=== PATIENT | male | born 2000 | race American Indian/Alaskan Native ===

== ENCOUNTER 2021-06-17 16:41 | Emergency (ER) | payer SELFPAY ==
--- NOTE | 2021-06-17 17:06 | Event Note ---
ED Screening Note Date of service: 06/17/21 Time: 16:59 ED Screening Note: Patient here with complaints of attempted suicide via taking a handful of Tylenol 1 hour prior to arrival Reports some dizziness [place] poison control contacted; Spoke with Estelle-recommends activated charcoal dose at 1 g/kg, max 100 g; also recommends repeating Tylenol level at 7 PM; if Tylenol level is greater than or equal to 150, contact poison control for further instructions on dosing for N-acetylcysteine. She recommends fluids and antiemetics as needed, and supportive care for now. This initial assessment/diagnostic orders/clinical plan/treatment(s) is/are subject to change based on patients health status, clinical progression and re- assessment by fellow clinical providers in the ED. Further treatment and workup at subsequent clinical providers discretion. Patient/guardian urged not to elope from the ED as their condition may be serious if not clinically assessed and managed. Initial orders include: Labs Mental health eval EKG
[2021-06-17] MEDS ORDERED: ONDANSETRON 4 MG ODT TAB PO ONE (17:10)
[2021-06-17] MEDS ORDERED: charcoal activated SOLUTION 25 GM/120 ML PO ONE (17:10)
--- NOTE | 2021-06-17 17:21 | Emergency Department Report ---
HPI - General Chief Complaint: Psych Time Seen by Provider: 06/17/21 17:04 - HPI HPI: MSE 2 The patient is a 20-year-old male present with a chief complaint of suicidal ideation and overdose. The patient states he has felt suicidal for several weeks and then he developed an issue with his girlfriend which worsened his stress. Patient states approximately 1.5 hours ago he took a handful of Tylenol rapid release. Patient is uncertain of the milligrams or the amount he took. Patient initially denied having any physical symptoms but now complains of feeling lightheaded for the past 40 minutes. Patient denies any other complaints. Patient denies any other attempts at harming self ED Past Medical Hx - Past Medical History Previous Medical History?: No - Surgical History Past Surgical History?: No - Family History Family history: no significant - Social History Smoking Status: Current Some Day Smoker (Black and milds) Substance Use Type: Marijuana - Medications Home Medications: Home Medications Medication Instructions Recorded Confirmed Last Taken Type No Known Home Medications [No 06/17/21 06/17/21 Unknown History Reported Home Medications] ED Review of Systems ROS: Stated complaint: TOOK MORE THAN 20 TYLENOL/RAPID RELEASE Other details as noted in HPI Constitutional: no symptoms reported Eyes: denies: eye pain ENT: denies: throat pain Respiratory: no symptoms reported Cardiovascular: denies: chest pain Endocrine: no symptoms reported Gastrointestinal: denies: abdominal pain Genitourinary: denies: dysuria Musculoskeletal: denies: back pain Neurological: other (Lightheadedness) Physical Exam - Physical Exam Vital Signs: Vital Signs 06/17/21 16:50 Temperature 98.1 F Pulse Rate 76 Respiratory 18 Rate Blood Pressure 149/94 [Right] O2 Sat by Pulse 100 Oximetry Physical Exam: GENERAL: The patient is well-developed well-nourished male sitting in chair not appearing to be in acute distress. [] HEENT: Normocephalic. Atraumatic. Extraocular motions are intact. Patient has moist mucous membranes. NECK: Supple. Trachea midline CHEST/LUNGS: Clear to auscultation. There is no respiratory distress noted. HEART/CARDIOVASCULAR: Regular. There is no tachycardia. There is no gallop rub or murmur. ABDOMEN: Abdomen is soft, nontender. Patient has normal bowel sounds. There is no abdominal distention. SKIN: There is no rash. There is no edema. There is no diaphoresis. NEURO: The patient is awake, alert, and oriented. The patient is cooperative. The patient has no focal neurologic deficits. The patient has normal speech. GCS 15 MUSCULOSKELETAL: There is no evidence of acute injury. ED Course Vital Signs 06/17/21 16:50 Temperature 98.1 F Pulse Rate 76 Respiratory 18 Rate Blood Pressure 149/94 [Right] O2 Sat by Pulse 100 Oximetry ED Medical Decision Making - Lab Data Result diagrams: 06/17/21 17:16 06/17/21 17:16 Laboratory Tests 06/17/21 06/17/21 06/17/21 17:16 17:16 17:16 WBC 5.7 RBC 4.63 Hgb 14.9 Hct 43.6 MCV 94 MCH 32 MCHC 34 RDW 14.2 Plt Count 154 Lymph % (Auto) 20.5 [place] % (Auto) 7.8 H Eos % (Auto) 1.4 Baso % (Auto) 0.4 Lymph # (Auto) 1.2 [place] # (Auto) 0.4 Eos # (Auto) 0.1 Baso # (Auto) 0.0 Seg Neutrophils % 69.9 Seg Neutrophils # 4.0 Sodium 142 Potassium 4.1 Chloride 103.3 Carbon Dioxide 26 Anion Gap 17 BUN 10 Creatinine 0.9 Estimated GFR > 60 BUN/Creatinine Ratio 11 Glucose 108 H Calcium 10.1 Total Bilirubin 1.20 AST 45 H ALT 30 Alkaline Phosphatase 43 Total Protein 7.9 Albumin 4.9 Albumin/Globulin Ratio 1.6 Urine Color Urine Turbidity Urine pH Ur Specific [place] Urine Protein Urine Glucose (UA) Urine Ketones Urine Blood Urine Nitrite Urine Bilirubin Urine Urobilinogen Ur Leukocyte Esterase Urine WBC (Auto) Urine RBC (Auto) U Epithel Cells (Auto) Urine Mucus Salicylates < 0.3 L Urine Opiates Screen Urine Methadone Screen Acetaminophen Ur Barbiturates Screen Ur Phencyclidine Scrn Ur Amphetamines Screen U Benzodiazepines Scrn Urine Cocaine Screen U Marijuana (THC) Screen Drugs of Abuse Note Plasma/Serum Alcohol 06/17/21 06/17/21 06/17/21 17:16 17:16 17:48 WBC RBC Hgb Hct MCV MCH MCHC RDW Plt Count Lymph % (Auto) [place] % (Auto) Eos % (Auto) Baso % (Auto) Lymph # (Auto) [place] # (Auto) Eos # (Auto) Baso # (Auto) Seg Neutrophils % Seg Neutrophils # Sodium Potassium Chloride Carbon Dioxide Anion Gap BUN Creatinine Estimated GFR BUN/Creatinine Ratio Glucose Calcium Total Bilirubin AST ALT Alkaline Phosphatase Total Protein Albumin Albumin/Globulin Ratio Urine Color [place] Urine Turbidity Hazy Urine pH 8.0 H Ur Specific [place] 1.030 Urine Protein 100 mg/dl Urine Glucose (UA) Neg Urine Ketones Neg Urine Blood Neg Urine Nitrite Neg Urine Bilirubin Neg Urine Urobilinogen 2.0 Ur Leukocyte Esterase Sm Urine WBC (Auto) 23.0 H Urine RBC (Auto) 3.0 U Epithel Cells (Auto) 3.0 Urine Mucus 3+ Salicylates Urine Opiates Screen Urine Methadone Screen Acetaminophen 5.0 L Ur Barbiturates Screen Ur Phencyclidine Scrn Ur Amphetamines Screen U Benzodiazepines Scrn Urine Cocaine Screen U Marijuana (THC) Screen Drugs of Abuse Note Plasma/Serum Alcohol < 0.01 06/17/21 06/18/21 06/18/21 17:48 00:32 00:32 WBC RBC Hgb Hct MCV MCH MCHC RDW Plt Count Lymph % (Auto) [place] % (Auto) Eos % (Auto) Baso % (Auto) Lymph # (Auto) [place] # (Auto) Eos # (Auto) Baso # (Auto) Seg Neutrophils % Seg Neutrophils # Sodium Potassium Chloride Carbon Dioxide Anion Gap BUN Creatinine Estimated GFR BUN/Creatinine Ratio Glucose Calcium Total Bilirubin AST ALT Alkaline Phosphatase Total Protein Albumin Albumin/Globulin Ratio Urine Color Urine Turbidity Urine pH Ur Specific [place] Urine Protein Urine Glucose (UA) Urine Ketones Urine Blood Urine Nitrite Urine Bilirubin Urine Urobilinogen Ur Leukocyte Esterase Urine WBC (Auto) Urine RBC (Auto) U Epithel Cells (Auto) Urine Mucus Salicylates < 0.3 L Urine Opiates Screen Negative Urine Methadone Screen Negative Acetaminophen 5.0 L Ur Barbiturates Screen Negative Ur Phencyclidine Scrn Negative Ur Amphetamines Screen Negative U Benzodiazepines Scrn Negative Urine Cocaine Screen Negative U Marijuana (THC) Screen Positive Drugs of Abuse Note Disclamer Plasma/Serum Alcohol - Differential Diagnosis Suicidal ideation, acetaminophen overdose Critical care attestation.: If time is entered above; I have spent that time in minutes in the direct care of this critically ill patient, excluding procedure time. ED Disposition Clinical Impression: Suicidal ideation, Acetaminophen overdose Disposition: [address] [place] [address] Is pt being admited?: No Does the pt Need Aspirin: No Condition: Stable Time of Disposition: 01:24 (Awaiting acceptance)
[2021-06-17 17:31] LABS: Basophils % (Auto) 0.4 % (0.0-1.8); Eosinophils # (Auto) 0.1 K/mm3 (0.0-0.4); Eosinophils % (Auto) 1.4 % (0.0-4.3); Hematocrit 43.6 % (35.5-45.6); Hemoglobin 14.9 gm/dl (11.8-15.2); Lymphocytes # (Auto) 1.2 K/mm3 (1.2-5.4); Lymphocytes % (Auto) 20.5 % (13.4-35.0); Mean Corpuscular HGB Conc 34 % (32-34); Mean Corpuscular Volume 94 fl (84-94); Monocytes # (Auto) 0.4 K/mm3 (0.0-0.8); Monocytes % (Auto) 7.8 % (0.0-7.3); Platelet Count 154 K/mm3 (140-440); Red Blood Count 4.63 M/mm3 (3.65-5.03); Red Cell Distribution Width 14.2 % (13.2-15.2)
[2021-06-17 17:54] LABS: Alanine Aminotransferase 30 units/L (7-56); Albumin 4.9 g/dL (3.9-5); BUN/Creatinine Ratio 11; Blood Urea Nitrogen 10 mg/dL (9-20); Calcium 10.1 mg/dL (8.4-10.2); Hemolysis Index 57
[2021-06-17 17:57] LABS: Bilirubin,Urine NEG (Negative); Blood,Urine NEG (Negative); Color,Urine Amber (Yellow); Mucus,Urine 3+ /HPF
[2021-06-17 18:03] LABS: Amphetamine Screen,Urine Negative; Benzodiazepines Screen,Urine Negative; Cocaine Screen,Urine Negative; Methadone Screen,Urine Negative; Opiate Screen,Urine Negative
[2021-06-17 18:24] LABS: Cannabinoid Screen,Urine Positive
[2021-06-18] MEDS ORDERED: levoFLOXacin 500 MG TAB PO ONE (01:23)
[2021-06-18] MEDS ORDERED: MELATONIN 5 MG TAB PO PRN (01:54)
[2021-06-18 08:11] VITALS: BP 140/79
--- NOTE | 2021-06-18 10:16 | Consultation ---
History of Present Illness - Reason for Consult Consult date: 06/18/21 Reason for consult: mental health evaluation - History of Present Psychiatric Illness Per ED Note:The patient is a 20-year-old male present with a chief complaint of suicidal ideation and overdose. The patient states he has felt suicidal for several weeks and then he developed an issue with his girlfriend which worsened his stress. Patient states approximately 1.5 hours ago he took a handful of Tylenol rapid release. Patient is uncertain of the milligrams or the amount he took. Patient initially denied having any physical symptoms but now complains of feeling lightheaded for the past 40 minutes. Patient denies any other complaints. Patient denies any other attempts at harming self. Ella Mckinney is a 20 year old male with no psychiatric history and he is naive to psychotropic medications. In my interview with the patient, he reports doing well. The patient reports taking about 5-10 pills of Tylenol, he states recent stressor such " a lot of stress and I just lost my baby (still born)." The denies feeling depressed and he is not receptive to starting psychotropic medications. He states support system such as is father,girlfriend and he is current employed. The patient is anxious to return to work stating " I feel better." He denies any current suicidal/homicidal ideation and denies hallucinations. PAST PSYCHIATRIC HISTORY Diagnoses: Denies Suicide attempts or Self-harm behavior: Denies Prior psychiatric hospitalizations:Denies Substance Abuse history: marijuana Previous psychiatric medications tried: Denied Outpatient treatment: Denied SOCIAL HISTORY Marital Status: Single Living Arrangements: Lives with girlfriend Employment Status: employed Access to guns/weapons: Denied Education: 12th grade History of Abuse: Denied Legal History: None reported REVIEW OF SYSTEMS Constitutional: Negative for weight loss ENT: Negative for stridor Respiratory: Negative for cough or hemoptysis All other systems reviewed and are negative MENTAL STATUS EXAMINATION General Appearance and Behavior: Age appropriate, dressed appropriately, calm and uncooperative Cooperation: guarded Psychomotor Behavior: psychomotor normal Mood: "ok" Affect and affective range: congruent with stated mood Thought Process: goal oriented Thought Content: Not suicidal Speech: Normal volume, Regular rate and rhythm, Intellectual Functioning: Average Suicidal Ideation: Denies Homicidal Ideation: denies Hallucinations: Denies Delusions: None elicited Impulse Control: Unimpaired Insight and Judgment: limited insight and judgment, Memory: Normal Attention: divided Orientation: Alert, oriented Assessment and Plan (1) Major depressive disorder (2) Treatment plan d/c 1013 Continue previous prescribed meds Risks, benefits and alternatives of medications discussed with the patient, questions answered and consent obtained from patient. PSYCHOTHERAPY: Supportive psychotherapy provided MEDICAL: Per primary team DELIRIUM PRECAUTIONS: Please re-orient patient frequently, keep lights on during the day, and minimize benzodiazepines and opiates as these medications could worsen patient's confusion. 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 The patient understands that he should seek immediate assistance if SI/HI return The patient is to follow up with outpatient psych in 7 to 14 days upon discharge. [facility] will provide patient with out patient psychiatry resources. Will sign off. Thank you for the consult. Please contact with any questions and/or concerns. Case staffed with Dr. Queen Medications and Allergies Allergies Allergy/AdvReac Type Severity Reaction Status Date / Time shellfish derived AdvReac Angioedema Verified 06/17/21 16:49 Home Medications Medication Instructions Recorded Confirmed Last Taken Type No Known Home Medications [No 06/17/21 06/17/21 Unknown History Reported Home Medications] Active Meds: Active Medications Melatonin (Melatonin 5 Mg Tab) 10 mg PO QHS PRN PRN Reason: Sleep Last Admin: 06/18/21 02:07 Dose: 10 mg Documented by: Mental Status Exam - Vital signs Last Vital Signs Temp 98.3 F 06/18/21 08:10 Pulse 76 06/18/21 08:10 Resp 18 06/18/21 08:10 BP 140/79 06/18/21 08:10 Pulse Ox 97 06/18/21 08:10 Results Result Diagrams: 06/17/21 17:16 06/17/21 17:16 Abnormal lab results 06/17/21 06/17/21 06/17/21 Range/Units 17:16 17:16 17:16 [place] % (Auto) 7.8 H (0.0-7.3) % Glucose 108 H (75-100) mg/dL AST 45 H (5-40) units/L Urine pH (5.0-7.0) Urine WBC (Auto) (0.0-6.0) /HPF Salicylates < 0.3 L (2.8-20.0) mg/dL Acetaminophen (10.0-30.0) ug/mL 06/17/21 06/17/21 06/18/21 Range/Units 17:16 17:48 00:32 [place] % (Auto) (0.0-7.3) % Glucose (75-100) mg/dL AST (5-40) units/L Urine pH 8.0 H (5.0-7.0) Urine WBC (Auto) 23.0 H (0.0-6.0) /HPF Salicylates < 0.3 L (2.8-20.0) mg/dL Acetaminophen 5.0 L (10.0-30.0) ug/mL 06/18/21 Range/Units 00:32 [place] % (Auto) (0.0-7.3) % Glucose (75-100) mg/dL AST (5-40) units/L Urine pH (5.0-7.0) Urine WBC (Auto) (0.0-6.0) /HPF Salicylates (2.8-20.0) mg/dL Acetaminophen 5.0 L (10.0-30.0) ug/mL All other labs normal.
--- NOTE | 2021-06-18 11:00 | Event Note ---
Date: 06/18/21 The patient was evaluated in the emergency department for symptoms described in the history of present illness. He/she was evaluated in the context of the global COVID-19 pandemic, which necessitated consideration that the patient might be at risk for infection with the virus that causes COVID-19. Institutional protocols and algorithms that pertain to the evaluation of patients at risk for COVID-19 are in a state of rapid change based on information released by regulatory bodies including the CDC and federal and state organizations. These policies and algorithms were followed during the patient's care in the emergency department. Please note that these policies, procedures and recommendations changed on a rapid basis. Patient seen and examined. No acute distress. No complaints articulated to myself or nursing team. He was deemed medically suitable for psychiatric consultation and disposition during his additional ER stay. The psychiatric team have recommended discharge as an outpatient. Laboratory studies, vital signs, ER documentation and psychiatric documentation are reviewed and appreciated. Pyuria asymptomatic, reviewed and appreciated. Outpatient follow-up with health department or primary care. Vital Signs 06/17/21 06/17/21 06/18/21 16:50 23:24 08:10 Temperature 98.1 F 98.3 F Pulse Rate 76 76 Respiratory 18 18 Rate Blood Pressure 149/94 140/79 [Right] O2 Sat by Pulse 100 97 97 Oximetry Lab Results 06/17/21 06/17/21 06/17/21 Range/Units 17:16 17:16 17:16 WBC 5.7 (4.5-11.0) K/mm3 RBC 4.63 (3.65-5.03) M/mm3 Hgb 14.9 (11.8-15.2) gm/dl Hct 43.6 (35.5-45.6) % MCV 94 (84-94) fl MCH 32 (28-32) pg MCHC 34 (32-34) % RDW 14.2 (13.2-15.2) % Plt Count 154 (140-440) K/mm3 Lymph % (Auto) 20.5 (13.4-35.0) % [place] % (Auto) 7.8 H (0.0-7.3) % Eos % (Auto) 1.4 (0.0-4.3) % Baso % (Auto) 0.4 (0.0-1.8) % Lymph # (Auto) 1.2 (1.2-5.4) K/mm3 [place] # (Auto) 0.4 (0.0-0.8) K/mm3 Eos # (Auto) 0.1 (0.0-0.4) K/mm3 Baso # (Auto) 0.0 (0.0-0.1) K/mm3 Seg Neutrophils % 69.9 (40.0-70.0) % Seg Neutrophils # 4.0 (1.8-7.7) K/mm3 Sodium 142 (137-145) mmol/L Potassium 4.1 (3.6-5.0) mmol/L Chloride 103.3 (98-107) mmol/L Carbon Dioxide 26 (22-30) mmol/L Anion Gap 17 mmol/L BUN 10 (9-20) mg/dL Creatinine 0.9 (0.8-1.3) mg/dL Estimated GFR > 60 ml/min BUN/Creatinine Ratio 11 % Glucose 108 H (75-100) mg/dL Calcium 10.1 (8.4-10.2) mg/dL Total Bilirubin 1.20 (0.1-1.2) mg/dL AST 45 H (5-40) units/L ALT 30 (7-56) units/L Alkaline Phosphatase 43 (35-129) units/L Total Protein 7.9 (6.3-8.2) g/dL Albumin 4.9 (3.9-5) g/dL Albumin/Globulin Ratio 1.6 % Urine Color (Yellow) Urine Turbidity (Clear) Urine pH (5.0-7.0) Ur Specific [place] (1.003-1.030) Urine Protein (Negative) mg/dL Urine Glucose (UA) (Negative) mg/dL Urine Ketones (Negative) mg/dL Urine Blood (Negative) Urine Nitrite (Negative) Urine Bilirubin (Negative) Urine Urobilinogen (<2.0) mg/dL Ur Leukocyte Esterase (Negative) Urine WBC (Auto) (0.0-6.0) /HPF Urine RBC (Auto) (0.0-6.0) /HPF U Epithel Cells (Auto) (0-13.0) /HPF Urine Mucus /HPF Salicylates < 0.3 L (2.8-20.0) mg/dL Urine Opiates Screen Urine Methadone Screen Acetaminophen (10.0-30.0) ug/mL Ur Barbiturates Screen Ur Phencyclidine Scrn Ur Amphetamines Screen U Benzodiazepines Scrn Urine Cocaine Screen U Marijuana (THC) Screen Drugs of Abuse Note Plasma/Serum Alcohol (0-0.07) % 06/17/21 06/17/21 06/17/21 Range/Units 17:16 17:16 17:48 WBC (4.5-11.0) K/mm3 RBC (3.65-5.03) M/mm3 Hgb (11.8-15.2) gm/dl Hct (35.5-45.6) % MCV (84-94) fl MCH (28-32) pg MCHC (32-34) % RDW (13.2-15.2) % Plt Count (140-440) K/mm3 Lymph % (Auto) (13.4-35.0) % [place] % (Auto) (0.0-7.3) % Eos % (Auto) (0.0-4.3) % Baso % (Auto) (0.0-1.8) % Lymph # (Auto) (1.2-5.4) K/mm3 [place] # (Auto) (0.0-0.8) K/mm3 Eos # (Auto) (0.0-0.4) K/mm3 Baso # (Auto) (0.0-0.1) K/mm3 Seg Neutrophils % (40.0-70.0) % Seg Neutrophils # (1.8-7.7) K/mm3 Sodium (137-145) mmol/L Potassium (3.6-5.0) mmol/L Chloride (98-107) mmol/L Carbon Dioxide (22-30) mmol/L Anion Gap mmol/L BUN (9-20) mg/dL Creatinine (0.8-1.3) mg/dL Estimated GFR ml/min BUN/Creatinine Ratio % Glucose (75-100) mg/dL Calcium (8.4-10.2) mg/dL Total Bilirubin (0.1-1.2) mg/dL AST (5-40) units/L ALT (7-56) units/L Alkaline Phosphatase (35-129) units/L Total Protein (6.3-8.2) g/dL Albumin (3.9-5) g/dL Albumin/Globulin Ratio % Urine Color Claud[place] (Yellow) Urine Turbidity Hazy (Clear) Urine pH 8.0 H (5.0-7.0) Ur Specific [place] 1.030 (1.003-1.030) Urine Protein 100 mg/dl (Negative) mg/dL Urine Glucose (UA) Neg (Negative) mg/dL Urine Ketones Neg (Negative) mg/dL Urine Blood Neg (Negative) Urine Nitrite Neg (Negative) Urine Bilirubin Neg (Negative) Urine Urobilinogen 2.0 (<2.0) mg/dL Ur Leukocyte Esterase Sm (Negative) Urine WBC (Auto) 23.0 H (0.0-6.0) /HPF Urine RBC (Auto) 3.0 (0.0-6.0) /HPF U Epithel Cells (Auto) 3.0 (0-13.0) /HPF Urine Mucus 3+ /HPF Salicylates (2.8-20.0) mg/dL Urine Opiates Screen Urine Methadone Screen Acetaminophen 5.0 L (10.0-30.0) ug/mL Ur Barbiturates Screen Ur Phencyclidine Scrn Ur Amphetamines Screen U Benzodiazepines Scrn Urine Cocaine Screen U Marijuana (THC) Screen Drugs of Abuse Note Plasma/Serum Alcohol < 0.01 (0-0.07) % 06/17/21 06/18/21 06/18/21 Range/Units 17:48 00:32 00:32 WBC (4.5-11.0) K/mm3 RBC (3.65-5.03) M/mm3 Hgb (11.8-15.2) gm/dl Hct (35.5-45.6) % MCV (84-94) fl MCH (28-32) pg MCHC (32-34) % RDW (13.2-15.2) % Plt Count (140-440) K/mm3 Lymph % (Auto) (13.4-35.0) % [place] % (Auto) (0.0-7.3) % Eos % (Auto) (0.0-4.3) % Baso % (Auto) (0.0-1.8) % Lymph # (Auto) (1.2-5.4) K/mm3 [place] # (Auto) (0.0-0.8) K/mm3 Eos # (Auto) (0.0-0.4) K/mm3 Baso # (Auto) (0.0-0.1) K/mm3 Seg Neutrophils % (40.0-70.0) % Seg Neutrophils # (1.8-7.7) K/mm3 Sodium (137-145) mmol/L Potassium (3.6-5.0) mmol/L Chloride (98-107) mmol/L Carbon Dioxide (22-30) mmol/L Anion Gap mmol/L BUN (9-20) mg/dL Creatinine (0.8-1.3) mg/dL Estimated GFR ml/min BUN/Creatinine Ratio % Glucose (75-100) mg/dL Calcium (8.4-10.2) mg/dL Total Bilirubin (0.1-1.2) mg/dL AST (5-40) units/L ALT (7-56) units/L Alkaline Phosphatase (35-129) units/L Total Protein (6.3-8.2) g/dL Albumin (3.9-5) g/dL Albumin/Globulin Ratio % Urine Color (Yellow) Urine Turbidity (Clear) Urine pH (5.0-7.0) Ur Specific [place] (1.003-1.030) Urine Protein (Negative) mg/dL Urine Glucose (UA) (Negative) mg/dL Urine Ketones (Negative) mg/dL Urine Blood (Negative) Urine Nitrite (Negative) Urine Bilirubin (Negative) Urine Urobilinogen (<2.0) mg/dL Ur Leukocyte Esterase (Negative) Urine WBC (Auto) (0.0-6.0) /HPF Urine RBC (Auto) (0.0-6.0) /HPF U Epithel Cells (Auto) (0-13.0) /HPF Urine Mucus /HPF Salicylates < 0.3 L (2.8-20.0) mg/dL Urine Opiates Screen Negative Urine Methadone Screen Negative Acetaminophen 5.0 L (10.0-30.0) ug/mL Ur Barbiturates Screen Negative Ur Phencyclidine Scrn Negative Ur Amphetamines Screen Negative U Benzodiazepines Scrn Negative Urine Cocaine Screen Negative U Marijuana (THC) Screen Positive Drugs of Abuse Note Disclamer Plasma/Serum Alcohol (0-0.07) %
== END 2021-06-18 11:47 | disposition home or self-care (01) ==
LOC: ED 16:41
DX: T39.1X2A Poisoning by 4-Aminophenol derivatives, intentional self-harm, initial encounter (principal); Z20.822 Contact with and (suspected) exposure to COVID-19; F17.200 Nicotine dependence, unspecified, uncomplicated; F12.90 Cannabis use, unspecified, uncomplicated; Z79.899 Other long term (current) drug therapy; Y92.89 Other specified places as the place of occurrence of the external cause
CPT/HCPCS: 36415; 80053; 80307; 81001; 85025; 87086; 99284; U0003; 80320; G0480; Q0162

== ENCOUNTER 2021-06-28 10:36 | Emergency (ER) | payer SELFPAY ==
[2021-06-28 11:05] VITALS: BP 147/88
--- NOTE | 2021-06-28 11:13 | Emergency Department Report ---
ED Male HPI - General Chief complaint: Urogenital-Male Stated complaint: GROWING PAIN Time Seen by Provider: 06/28/21 11:06 Source: patient Mode of arrival: Ambulatory Limitations: No Limitations - History of Present Illness Initial comments: Patient is a 20-year-old male presents emergency room with complaints of testicular pain that worsened over the last week. Patient states that approximately a year ago he felt like he found an "extra testicle." He states he did not see anyone for this. He states it is becoming larger and more painful. He denies any fever, abdominal pain, dysuria, hematuria, penile discharge. No past medical history. Allergy to shellfish. - Related Data Home Medications Medication Instructions Recorded Confirmed Last Taken No Known Home Medications [No 06/17/21 06/17/21 Unknown Reported Home Medications] Allergies Allergy/AdvReac Type Severity Reaction Status Date / Time shellfish derived AdvReac Angioedema Verified 06/17/21 16:49 ED Review of Systems ROS: Stated complaint: GROWING PAIN Other details as noted in HPI Comment: All other systems reviewed and negative ED Past Medical Hx - Past Medical History Previous Medical History?: No - Surgical History Past Surgical History?: No - Social History Smoking Status: Current Some Day Smoker (Black and milds) Substance Use Type: Marijuana - Medications Home Medications: Home Medications Medication Instructions Recorded Confirmed Last Taken Type No Known Home Medications [No 06/17/21 06/17/21 Unknown History Reported Home Medications] ED Physical Exam - General Limitations: No Limitations General appearance: alert, in no apparent distress - Head Head exam: Present: atraumatic, normocephalic - Eye Eye exam: Present: normal appearance - ENT ENT exam: Present: mucous membranes moist - Respiratory Respiratory exam: Absent: respiratory distress, accessory muscle use - GI/Abdominal GI/Abdominal exam: Present: soft. Absent: distended, tenderness, guarding, rebound, rigid - exam: Present: other (court clerk: JIAN Chery, there is mild testicular ttp bilaterally, there is a 2 cm firm nodule present to the left testicular region, no induration, no fluctuance, no skin changes, no erythema or increased warmth, normal testicular lie, normal cremasteric reflex) - Neurological Exam Neurological exam: Present: alert, oriented X3 - Psychiatric Psychiatric exam: Present: normal affect, normal mood - Skin Skin exam: Present: warm, dry, intact ED Course Vital Signs 06/28/21 11:02 Temperature 98.0 F Pulse Rate 56 L Respiratory 14 Rate Blood Pressure 147/88 O2 Sat by Pulse 96 Oximetry ED Medical Decision Making - Lab Data Lab Results 06/28/21 Range/Units 11:42 Urine Color Yellow (Yellow) Urine Turbidity Clear (Clear) Urine pH 5.0 (5.0-7.0) Ur Specific [place] 1.018 (1.003-1.030) Urine Protein <15 mg/dl (Negative) mg/dL Urine Glucose (UA) Neg (Negative) mg/dL Urine Ketones Neg (Negative) mg/dL Urine Blood Neg (Negative) Urine Nitrite Neg (Negative) Urine Bilirubin Neg (Negative) Urine Urobilinogen < 2.0 (<2.0) mg/dL Ur Leukocyte Esterase Neg (Negative) Urine WBC (Auto) 2.0 (0.0-6.0) /HPF Urine RBC (Auto) 1.0 (0.0-6.0) /HPF U Epithel Cells (Auto) 1.0 (0-13.0) /HPF Urine Mucus Few /HPF - Radiology Data Radiology results: report reviewed Ordering Physician: ORIANA OZUNA Date of Service: 06/28/21 Procedure(s): US testicular doppler comp Accession Number(s): [id number] cc: ORIANA OZUNA ULTRASOUND SCROTUM INDICATION: testicular pain bilaterally, left sided nodule. COMPARISON None available. FINDINGS: RIGHT TESTICLE: 4.1 x 2.3 x 2.9 cm. Normal echogenicity. Normal color flow. No solid or cystic lesions. RIGHT EPIDIDYMIS: No significant abnormality. LEFT TESTICLE: 3.8 x 2.1 x 3.1 cm. Normal echogenicity. Normal color flow. No solid or cystic lesions. LEFT EPIDIDYMIS: No significant abnormality. HYDROCELE: There is a small left hydrocele. VARICOCELE: Small varicoceles are noted bilaterally. ADDITIONAL FINDINGS: None. IMPRESSION: 1. Small left hydrocele. 2. Small varicoceles bilaterally. 3. No other significant abnormality. Signer Name: Bartolome Walters MD Signed: 06/28/2021 12:54 PM Workstation Name: [id number] Transcribed By: JORDEN Dictated By: Bartolome Walters MD Electronically Authenticated By: Bartolome Walters MD Signed Date/Time: 06/28/211253 DD/ 50 TD/TT: - Medical Decision Making Patient is a 20-year-old male presents emergency room with complaints of testicular pain that worsened over the last week. Patient states that approximately a year ago he felt like he found an "extra testicle." He states he did not see anyone for this. He states it is becoming larger and more painful. He denies any fever, abdominal pain, dysuria, hematuria, penile discharge. No past medical history. Allergy to shellfish. Vitals are stable. On exam:court clerk: JIAN Chery, there is mild testicular ttp bilaterally, there is a 2 cm firm nodule present to the left testicular region, no induration, no fluctuance, no skin changes, no erythema or increased warmth, normal testicular lie, normal cremasteric reflex. testicular US: 1. Small left hydrocele. 2. Small varicoceles bilaterally. 3. No other significant abnormality. UA is within normal limits. Discussed all results with patient answer questions. Discussed the importance of outpatient urology follow-up. Discussed return precautions. Advised patient Please follow-up with urologist. Please follow-up with a primary care doctor. Return to emergency room for any new or worsening symptoms. Critical care attestation.: If time is entered above; I have spent that time in minutes in the direct care of this critically ill patient, excluding procedure time. ED Disposition Clinical Impression: Varicocele Testicular pain Qualifiers: Laterality: bilateral Qualified Code(s): N50.811 - Right testicular pain Hydrocele Qualifiers: Hydrocele type: unspecified Qualified Code(s): N43.3 - Hydrocele, unspecified Disposition: 01 HOME / SELF CARE / HOMELESS Is pt being admited?: No Does the pt Need Aspirin: No Condition: Stable Instructions: Hydrocele, Adult, Varicocele Additional Instructions: Please follow-up with urologist. Please follow-up with a primary care doctor. Return to emergency room for any new or worsening symptoms. Referrals: PRIMARY CARE, [Primary Care Provider] - 3-5 Days PAT HAMILTON MD [Staff Physician] - 3-5 Days Time of Disposition: 13:14 Print Language: CENTRAL AFRICAN
[2021-06-28 11:50] LABS: Bilirubin,Urine NEG (Negative); Blood,Urine NEG (Negative); Color,Urine Yellow (Yellow); Mucus,Urine FEW /HPF; Protein,Urine <15 mg/dL mg/dL (Negative); Urobilinogen,Urine < 2.0 mg/dL (<2.0)
--- NOTE | 2021-06-28 12:59 | Ultrasound Report ---
ULTRASOUND SCROTUM INDICATION: testicular pain bilaterally, left sided nodule. COMPARISON None available. FINDINGS: RIGHT TESTICLE: 4.1 x 2.3 x 2.9 cm. Normal echogenicity. Normal color flow. No solid or cystic lesion s. RIGHT EPIDIDYMIS: No significant abnormality. LEFT TESTICLE: 3.8 x 2.1 x 3.1 cm. Normal echogenicity. Normal color flow. No solid or cystic lesions . LEFT EPIDIDYMIS: No significant abnormality. HYDROCELE: There is a small left hydrocele. VARICOCELE: Small varicoceles are noted bilaterally. ADDITIONAL FINDINGS: None. IMPRESSION: 1. Small left hydrocele. 2. Small varicoceles bilaterally. 3. No other significant abnormality. Signer Name: Bartolome Walters MD Signed: 06/28/2021 12:54 PM Workstation Name: [id number]
== END 2021-06-28 13:29 | disposition home or self-care (01) ==
LOC: ED 10:36
DX: I86.1 Scrotal varices (principal); N50.812 Left testicular pain; N50.811 Right testicular pain; N43.3 Hydrocele, unspecified; Z91.013 Allergy to seafood
CPT/HCPCS: 81001; 93975; 99283